=== PATIENT | male | born 1950 | race Asian ===

== ENCOUNTER 2016-11-28 12:02 | Day surgery (SDC) | payer OTHER ==
[~2016-11-28] VITALS: Ht 167.6 cm; Wt 63.9 kg
[2016-11-28] MEDS ORDERED: TIMOLOL MALEATE (13:06)
[2016-11-28] MEDS ORDERED: ferrous sulfate (13:06)
[2016-11-28 13:12] VITALS: Ht 167.6 cm; Wt 63.9 kg
[2016-11-28 13:49] VITALS: BP 124/66; PULSE 57; RESP 13
[2016-11-28 15:21] VITALS: BP 97/60; PULSE 56; RESP 13
[2016-11-28] MEDS ORDERED: FENTAnyl 50 MCG/ML VIAL ONE (15:25)
[2016-11-28] MEDS ORDERED: MIDAZOLAM 1 MG/ML 2 ML INJ ONE ×2 (15:25)
[2016-11-28 15:51] VITALS: BP 106/71; RESP 18
--- NOTE | 2016-11-29 10:33 | GILP ---
DATE OF PROCEDURE: 11/28/2016 PROCEDURE: Colonoscopy to cecum. HISTORY AND INDICATIONS: Colorectal cancer screening. PREMEDICATION: Monitored anesthesia care by anesthesiologist. INSTRUMENT USED: Olympus colonoscope. PREPARATION: Adequate. TECHNIQUE: After informed consent, with the patient/relatives understanding the procedure, its indications potential risks and complications, including but not limited to: allergic reaction, bleeding, perforation, infection, missed lesions and after all pertinent questions were answered to the patient's satisfaction, the patient/relatives signed the witnessed informed consent. Following this, premedication was administered slowly IV push by under careful cardiovascular and respiratory monitoring with pulse oximetry, automatic blood pressure and drier belt conveyor. Once the sedative effect was achieved, the patient was placed in the left lateral decubitus position, digital rectal examination was performed. The colonoscope was then introduced and advanced under visual control throughout all segments of the colon including: the rectum, sigmoid, descending colon, splenic flexure, transverse colon, hepatic flexure, ascending colon and finally reaching the cecum which was clearly identified by transillumination, finger indentation and the ileocecal valve. Careful examination of the mucosa of the lower gastrointestinal tract both on insertion as well as withdrawal of the instrument disclosed the following findings: Rectal Examination: No evidence of perirectal disease, no masses. Colonic mucosa:The colonic mucosa is unremarkable throughout. The ileocecal valve was clearly identified and appears unremarkable. The instrument was withdrawn. Re-examined the mucosa in detail. No additional abnormalities are noted with the exception of moderate-sized internal hemorrhoids. The instrument was then withdrawn, the patient tolerated the procedure well and was transferred out of the [facility] awake and in good condition to continue recovery under observation. IMPRESSION: 1. Normal colonoscopy to cecum. 2. Moderate-sized internal hemorrhoids. RECOMMENDATIONS: The patient will follow up as an outpatient. Annual hemoccult stool testing is recommended. Colonoscopy in 10 years is recommended. Dictated By: Gunnar Zabala MD /dom/lencho /Document#: [id number]
== END 2016-11-28 17:09 | disposition home or self-care (01) ==
LOC: GIL 12:02
PROVIDERS: ATTEND Internal Medicine Gastroenterology
DX: Z12.11 Encounter for screening for malignant neoplasm of colon (principal); K64.8 Other hemorrhoids
CPT/HCPCS: 45378; J2250; J3010; Z7610